=== PATIENT | female | born 1980 | race Caucasian/White ===

== ENCOUNTER 2022-02-03 12:23 | Inpatient (IN) | payer MEDICAID, MEDICARE ==
[2022-02-03] MEDS ORDERED: Albuterol/Ipratropium 3.0-0.5 MG/3 ML Neb Soln NEB ONE (13:26)
[2022-02-03] MEDS ORDERED: Furosemide 40 MG/4 ML VIAL IVPUSH ONE (15:49)
[2022-02-03 16:02] LABS: ESTIMATED GFR 83 mL/min (>60)
[2022-02-03] MEDS: methylPREDNISolone Sodium Succinate 40 MG/1 ML SDV IVPUSH SCH ×2 (16:05→23:29)
[2022-02-03] MEDS ORDERED: Nicotine Polacrilex 2 MG Gum CHEW PRN (17:09)
[2022-02-03] MEDS ORDERED: 50% Dextrose in Water 50 ML Syringe IV PRN (17:43)
[2022-02-03] MEDS ORDERED: Acetaminophen 325 MG Tab PO PRN (17:43)
[2022-02-03] MEDS ORDERED: Glucose Gel 15 GM in 37.5 GM Tube PO PRN (17:43)
[2022-02-03] MEDS ORDERED: Ondansetron 4 MG/2 ML SDV IV PRN (17:43)
[2022-02-03] MEDS ORDERED: Enoxaparin 40 MG/0.4 ML Syringe SUBCUT SCH (17:43)
[2022-02-03] MEDS ORDERED: Sodium Chloride 0.9% 10 ML Syringe FLUSH PRN (17:43)
[2022-02-03] MEDS ORDERED: Albuterol 0.083% 2.5 MG/3 ML Neb Soln NEB PRN (17:43)
[2022-02-03] MEDS: Nicotine 14 MG/24 Hr Patch TRDERM SCH (17:57)
[2022-02-03] MEDS: Potassium Chloride 20 MEQ Tab.ER PO ONE ×2 (17:57→18:00)
[2022-02-03] MEDS: cefTRIAXone 1 GM in Sodium Chloride 0.9% 50 ML IV SCH (18:10)
[2022-02-03] MEDS: Albuterol/Ipratropium 3.0-0.5 MG/3 ML Neb Soln NEB SCH ×2 (18:22→21:18)
[2022-02-03] MEDS: Insulin Lispro 100 Unit/ML 3 ML KwikPen SUBCUT SCH ×2 (18:34→21:18)
[2022-02-03] MEDS ORDERED: tiZANidine 2 MG Tab PO PRN (19:28)
[2022-02-03] MEDS: Azithromycin 500 MG in Sodium Chloride 0.9% 250 ML IV SCH (19:39)
[2022-02-03] MEDS ORDERED: Nortriptyline 25 MG Cap PO SCH ×2 (21:00)
[2022-02-03] MEDS ORDERED: Zolpidem 5 MG Tab PO SCH (21:00)
[2022-02-03] MEDS: Baclofen 10 MG Tab PO SCH (21:17)
[2022-02-03] MEDS: ClonazePAM 1 MG Tab PO SCH (21:17)
[2022-02-03] MEDS: DULoxetine 30 MG Cap PO SCH (21:17)
[2022-02-03] MEDS: Pregabalin 75 MG Cap PO SCH (21:18)
[2022-02-04 05:02] LABS: ESTIMATED GFR 83 mL/min (>60)
[2022-02-04] MEDS: Albuterol/Ipratropium 3.0-0.5 MG/3 ML Neb Soln NEB SCH ×4 (05:27→21:52)
[2022-02-04] MEDS ORDERED: Pantoprazole 40 MG Tab.CR PO SCH (07:30)
[2022-02-04] MEDS ORDERED: metFORMIN 500 MG Tab PO SCH (08:00)
[2022-02-04] MEDS: Baclofen 10 MG Tab PO SCH ×2 (08:19→13:36)
[2022-02-04] MEDS: DULoxetine 30 MG Cap PO SCH (08:20)
[2022-02-04] MEDS: Nicotine 14 MG/24 Hr Patch TRDERM SCH (08:26)
[2022-02-04] MEDS: methylPREDNISolone Sodium Succinate 40 MG/1 ML SDV IVPUSH SCH ×2 (08:27→17:10)
[2022-02-04] MEDS ORDERED: Potassium Chloride 20 MEQ Tab.ER PO ONE (08:30)
[2022-02-04] MEDS: ClonazePAM 1 MG Tab PO SCH ×2 (08:33→13:36)
[2022-02-04] MEDS: Pregabalin 75 MG Cap PO SCH ×2 (08:34→13:36)
[2022-02-04] MEDS ORDERED: Estradiol 0.5 MG Tab PO SCH (09:00)
[2022-02-04] MEDS ORDERED: ARIPiprazole 10 MG Tab PO SCH (09:00)
[2022-02-04] MEDS ORDERED: Montelukast 10 MG Tab PO SCH (09:00)
[2022-02-04] MEDS ORDERED: traZODone 50 MG Tab PO SCH ×2 (09:00→21:00)
[2022-02-04] MEDS: Insulin Lispro 100 Unit/ML 3 ML KwikPen SUBCUT SCH ×4 (09:43→22:18)
[2022-02-04] MEDS ORDERED: Enoxaparin 40 MG/0.4 ML Syringe SUBCUT SCH (17:00)
[2022-02-04] MEDS: cefTRIAXone 1 GM in Sodium Chloride 0.9% 50 ML IV SCH (17:11)
[2022-02-04] MEDS: Azithromycin 500 MG in Sodium Chloride 0.9% 250 ML IV SCH (18:22)
== END 2022-02-04 22:38 | disposition left against medical advice (07) | DRG 193 ==
LOC: JP.ED 12:23 → JP.MS 15:51
PROVIDERS: ADMIT Hospitalist; ATTEND Hospitalist
DX: J18.9 Pneumonia, unspecified organism (principal); R06.02 Shortness of breath; J84.9 Interstitial pulmonary disease, unspecified; J96.21 Acute and chronic respiratory failure with hypoxia; J45.901 Unspecified asthma with (acute) exacerbation; G47.30 Sleep apnea, unspecified; Z20.822 Contact with and (suspected) exposure to COVID-19; F41.9 Anxiety disorder, unspecified; F32.A Depression, unspecified; E11.9 Type 2 diabetes mellitus without complications; H54.7 Unspecified visual loss; Z91.048 Other nonmedicinal substance allergy status; Z88.0 Allergy status to penicillin; F17.210 Nicotine dependence, cigarettes, uncomplicated; Z88.1 Allergy status to other antibiotic agents; Z91.040 Latex allergy status; Z88.2 Allergy status to sulfonamides; Z88.8 Allergy status to other drugs, medicaments and biological substances; Z79.84 Long term (current) use of oral hypoglycemic drugs; Z79.899 Other long term (current) drug therapy; Z90.710 Acquired absence of both cervix and uterus; Z90.49 Acquired absence of other specified parts of digestive tract; Z99.81 Dependence on supplemental oxygen
CPT/HCPCS: 36415; 36600; 71046 ×2; 80053; 83880; 84145; 85025; 85379; 86140; 94640; U0002; 82803; 82947; 87040; 93306; 94762; 96374; 96375; 99285-25; A9270-GY; J0456; J0696; J1650; J1815; J1940; J2920; J7050; J7620

== ENCOUNTER 2022-02-15 03:20 | Emergency (ER) | payer MEDICARE ==
[2022-02-15 04:17] LABS: ESTIMATED GFR 83 mL/min (>60)
== END 2022-02-15 05:20 | disposition home or self-care (01) ==
LOC: JP.ED 03:20
DX: E11.649 Type 2 diabetes mellitus with hypoglycemia without coma (principal); N30.00 Acute cystitis without hematuria; F17.210 Nicotine dependence, cigarettes, uncomplicated; Z88.0 Allergy status to penicillin; Z91.040 Latex allergy status; Z88.1 Allergy status to other antibiotic agents; Z88.8 Allergy status to other drugs, medicaments and biological substances; Z79.899 Other long term (current) drug therapy; Z79.84 Long term (current) use of oral hypoglycemic drugs; Z20.822 Contact with and (suspected) exposure to COVID-19
CPT/HCPCS: 36415; 80053; 81001; 85025; 99284; U0002

== ENCOUNTER 2022-02-16 19:28 | Emergency (ER) | payer MEDICARE ==
[2022-02-16] MEDS ORDERED: Ketorolac 30 MG/ML SDV IM ONE (19:59)
== END 2022-02-16 20:31 | disposition home or self-care (01) ==
LOC: JP.ED 19:28
DX: M25.511 Pain in right shoulder (principal); M75.41 Impingement syndrome of right shoulder; E11.9 Type 2 diabetes mellitus without complications; F17.210 Nicotine dependence, cigarettes, uncomplicated; Z88.0 Allergy status to penicillin; Z88.1 Allergy status to other antibiotic agents; Z91.040 Latex allergy status; Z88.8 Allergy status to other drugs, medicaments and biological substances; Z79.84 Long term (current) use of oral hypoglycemic drugs; Z79.899 Other long term (current) drug therapy
CPT/HCPCS: 96372; 99283; J1885

== ENCOUNTER 2022-04-25 12:47 | Emergency (ER) | payer MEDICARE, OTHER | END 2022-04-25 14:44 | disposition home or self-care (01) | LOC: JP.ED 12:47 | DX: R60.0 Localized edema (principal); J84.10 Pulmonary fibrosis, unspecified; Z88.0 Allergy status to penicillin; Z88.1 Allergy status to other antibiotic agents; Z91.040 Latex allergy status; Z88.8 Allergy status to other drugs, medicaments and biological substances; Z88.2 Allergy status to sulfonamides; Z79.899 Other long term (current) drug therapy; Z79.84 Long term (current) use of oral hypoglycemic drugs; Z90.49 Acquired absence of other specified parts of digestive tract; Z90.710 Acquired absence of both cervix and uterus | CPT/HCPCS: 99284 ==

== ENCOUNTER 2022-05-06 09:13 | Emergency (ER) | payer MEDICARE, OTHER ==
[2022-05-06] MEDS ORDERED: Ketorolac 30 MG/ML SDV IM ONE (10:20)
== END 2022-05-06 10:50 | disposition home or self-care (01) ==
LOC: JP.ED 09:13
DX: G89.29 Other chronic pain (principal); M54.50 Low back pain, unspecified; E11.9 Type 2 diabetes mellitus without complications; Z88.1 Allergy status to other antibiotic agents; Z88.0 Allergy status to penicillin; Z88.8 Allergy status to other drugs, medicaments and biological substances; Z88.2 Allergy status to sulfonamides; Z79.899 Other long term (current) drug therapy; Z90.49 Acquired absence of other specified parts of digestive tract; Z90.710 Acquired absence of both cervix and uterus
CPT/HCPCS: 96372; 99283; J1885

== ENCOUNTER 2022-05-16 07:32 | Emergency (ER) | payer MEDICARE, MEDICAID ==
[2022-05-16] MEDS ORDERED: fentaNYL 100 MCG/2 ML SDV IM ONE (09:12)
== END 2022-05-16 11:30 | disposition home or self-care (01) ==
LOC: JP.ED 07:32
DX: M54.50 Low back pain, unspecified (principal); G89.29 Other chronic pain; E11.9 Type 2 diabetes mellitus without complications; Z72.0 Tobacco use; Z88.0 Allergy status to penicillin; Z88.1 Allergy status to other antibiotic agents; Z91.040 Latex allergy status; Z88.8 Allergy status to other drugs, medicaments and biological substances; Z91.048 Other nonmedicinal substance allergy status; Z88.2 Allergy status to sulfonamides; Z79.899 Other long term (current) drug therapy; Z79.84 Long term (current) use of oral hypoglycemic drugs
CPT/HCPCS: 96372; 99283; J3010

== ENCOUNTER 2022-06-02 17:01 | Emergency (ER) | payer MEDICAID, MEDICARE | END 2022-06-02 19:12 | disposition home or self-care (01) | LOC: JP.ED 17:01 | DX: S20.211A Contusion of right front wall of thorax, initial encounter (principal); E11.9 Type 2 diabetes mellitus without complications; F17.210 Nicotine dependence, cigarettes, uncomplicated; Z88.0 Allergy status to penicillin; Z91.040 Latex allergy status; Z88.1 Allergy status to other antibiotic agents; Z88.8 Allergy status to other drugs, medicaments and biological substances; Z79.899 Other long term (current) drug therapy; W06.XXXA Fall from bed, initial encounter | CPT/HCPCS: 71046; 71046-26; 99284 ==

== ENCOUNTER 2022-06-18 12:51 | Emergency (ER) | payer MEDICARE, MEDICAID | END 2022-06-18 14:34 | disposition left against medical advice (07) | LOC: JP.ED 12:51 | DX: Z53.21 Procedure and treatment not carried out due to patient leaving prior to being seen by health care provider (principal) ==